=== PATIENT | male | born 1990 | race Two or more races ===

== ENCOUNTER 2019-11-07 08:07 | Outpatient (CLI) | payer BC, MEDICAID, OTHER ==
--- NOTE | 2019-11-07 20:32 | XRAY Report ---
Reason: LUMBAR RADICULOPATHY Procedure Date: 11/07/2019 Accession Number: [id number] / [id number] Procedure: WCP - Lumbar Spine 2 View CPT Code: Final Report FULL RESULT: EXAM: LUMBOSACRAL SPINE RADIOGRAPHY EXAM DATE: 11/07/2019 08:07 AM. CLINICAL HISTORY: LUMBAR RADICULOPATHY. COMPARISONS: None. TECHNIQUE: 3 views. FINDINGS: Alignment: Normal. No spondylolisthesis or scoliosis. Bones: Five [id number]-[id number] lumbar vertebral bodies are present. No fractures or bone lesions. Disks: Normal. Disk heights are maintained. Facets: Degenerative changes of bilateral facet joint at L5-S1 greater than L4-L5. Moderate neural foraminal and spinal canal stenosis at L5-S1. Sacroiliac Joints: Unremarkable. Soft Tissues: Normal. The visualized bowel gas pattern is normal. IMPRESSION: Degenerative changes of bilateral facet joint at L5-S1 greater than L4-L5. Moderate neural foraminal and spinal canal stenosis at L5-S1. No acute displaced fracture or malalignment. RADIA
== END 2019-11-07 08:08 | disposition home or self-care (01) ==
LOC: DI.WCP 08:07
PROVIDERS: ATTEND Family Medicine
DX: M47.816 Spondylosis without myelopathy or radiculopathy, lumbar region (principal); M47.817 Spondylosis without myelopathy or radiculopathy, lumbosacral region; M48.07 Spinal stenosis, lumbosacral region
CPT/HCPCS: 72100

== ENCOUNTER 2019-11-12 07:48 | Emergency (ER) | payer BC ==
--- NOTE | 2019-11-12 08:12 | ED Physician Documentation ---
PD HPI BACK PAIN - Stated complaint Stated Complaint: BILAT LEG PX - Chief complaint Chief Complaint: Back Pain - History obtained from History obtained from: Patient - History of Present Illness Timing - onset: How many days ago (several days ago, with worse since yesterday.) Timing - details: Abrupt onset (was just bending without contortion nor lifting and had a pop feeling in lower back with radiation to both backs of thighs. No weakness nor numbness. Has had episodes similarly in the past.), Still present Location: Lower Quality: Pain, Spasm Associated symptoms: No: Fever, Weakness, Numbness Improves with: Rest Worsened by: Movement Contributing factors: No: Twisting (but was bending over), Trauma Similar symptoms before: No diagnosis (has had episodes in the past. Current episode without particular trauma. Seen by PMD few days ago with lumbar xray done. No significant findings.) Review of Systems Constitutional: denies: Fever, Chills Nose: denies: Rhinorrhea / runny nose, Congestion Throat: denies: Sore throat Respiratory: denies: Cough : denies: Incontinent Skin: denies: Rash, Lesions PD PAST MEDICAL HISTORY - Past Medical History Cardiovascular: None Respiratory: None Endocrine/Autoimmune: None GI: None : None HEENT: None Psych: None Musculoskeletal: None Derm: None - Past Surgical History Past Surgical History: No - Present Medications Home Medications: Ambulatory Orders Medication Instructions Recorded Confirmed Cyclobenzaprine [Flexeril] 10 mg PO TID PRN 11/12/19 11/12/19 Hydrocodone/Acetaminophen [[place] 1 each PO Q6H PRN #15 tablet 11/12/19 5-325 Tablet] Naproxen 500 mg PO BID #20 tablet 11/12/19 dexAMETHasone [Decadron] 4 mg PO DAILY #5 tablet 11/12/19 methocarbamoL [Robaxin] 500 mg PO Q6H PRN #30 tablet 11/12/19 - Allergies Allergies/Adverse Reactions: Allergies Allergy/AdvReac Type Severity Reaction Status Date / Time No Known Drug Allergies Allergy Verified 11/12/19 08:03 - Social History Does the pt smoke?: No Smoking Status: Never smoker Does the pt drink ETOH?: Yes Does the pt have substance abuse?: No - Immunizations Immunizations are current?: Yes - POLST Patient has POLST: No PD ED PE NORMAL - Vitals Vital signs reviewed: Yes - General General: Alert and oriented X 3, Well developed/nourished, Other (seems uncomfortable with any ROM) - Abdomen Abdomen: Soft, Non tender - Back Back: No CVA TTP, No spinal TTP (but has some tenderness in bilateral lower back muscles near SI area. ) - Derm Derm: Normal color, Warm and dry - Extremities Extremities: Normal ROM s pain, No edema, No calf tenderness / cord - Neuro Neuro: Alert and oriented X 3, No motor deficit, No sensory deficit, Other (normal patellar reflexes) Results - Vitals Vitals: Vital Signs - 24 hr 11/12/19 11/12/19 07:54 09:49 Temperature 36.3 C L Heart Rate 70 71 Respiratory 18 16 Rate Blood Pressure 126/73 116/79 O2 Saturation 99 100 Oxygen O2 Source Room air - Rads (name of study) lumbar CT Radiology: Prelim report reviewed, See rad report PD MEDICAL DECISION MAKING - ED course Complexity details: reviewed results (given the abrupt worsening with radiation, I felt CT imaging appropriate.), considered differential, d/w patient Departure - Departure Disposition: 01 Home, Self Care Clinical Impression: Low back pain Qualifiers: Chronicity: acute Back pain laterality: bilateral Sciatica presence: with sciatica Sciatica laterality: bilateral sciatica Qualified Code(s): M54.42 - Lumbago with sciatica, left side Condition: Stable Record reviewed to determine appropriate education?: Yes Instructions: ED Low Back Pain Injury Follow-Up: Mikey Snyder DO [Primary Care Provider] - Prescriptions: dexAMETHasone [Decadron] 4 mg PO DAILY #5 tablet Hydrocodone/Acetaminophen [[place] 5-325 Tablet] 1 each PO Q6H PRN #15 tablet PRN Reason: Pain methocarbamoL [Robaxin] 500 mg PO Q6H PRN #30 tablet PRN Reason: Spasms Naproxen 500 mg PO BID #20 tablet Comments: Your CT scan looks pretty good with just minimal degenerative change of some of the discs. None appear significantly encroaching on the nerve roots or spinal cord. Presumably the pain and radiation to the backs of the legs can be coming from irritation of the nerve outside the spine so more likely the alignment and the muscles and inflammation. Treat this with anti-inflammatories of naproxen and steroidal anti-inflammatory Decadron as prescribed. To that add muscle relaxant (the one previously prescribed and I also wrote for another to continue after that if you run out). To that add Tylenol every 4-6 hours for additional pain or hydrocodone for worse pain. No heavy lifting or vigorous activity for several days but do gentle range of motion and stretching. Physical treatments such as massage and chiropractic are good for this as well and continue with those. Recheck if not improving well over the next several days to week. Forms: Activity restrictions Discharge Date/Time: 11/12/19 09:50
[2019-11-12] MEDS ORDERED: KETOROLAC 30 MG/ML VIAL IM STA (08:34)
[2019-11-12] MEDS ORDERED: HYDROcod/ACETAM 5/325 MG TABLET PO STA (08:34)
--- NOTE | 2019-11-12 09:28 | CT Report ---
Reason: abrupt worsening low back pain today Procedure Date: 11/12/2019 Accession Number: [id number] / [id number] Procedure: CT - LUMBAR SPINE WO CPT Code: Final Report FULL RESULT: EXAM: CT LUMBAR SPINE WITHOUT CONTRAST EXAM DATE: 11/12/2019 08:57 AM. CLINICAL HISTORY: Abrupt worsening low back pain today. Lower exam he pain and weakness. COMPARISONS: LUMBAR SPINE 2 VIEW 11/07/2019 7:36 AM ABDOMEN/PELVIS W/ 07/23/2014 12:37 PM. TECHNIQUE: Thin-section axial images were acquired of the lumbar spine from T12 to S1 without contrast. Post-processing: Coronal and sagittal reformats. Other: None. In accordance with CT protocol optimization, one or more of the following dose reduction techniques were utilized for this exam: automated exposure control, adjustment of mA and/or KV based on patient size, or use of iterative reconstructive technique. FINDINGS: Alignment: No scoliosis or spondylolisthesis. Bones: Five [id number] lumbar vertebral bodies are present. No fractures or bone lesions. Disk Levels/Facets: T12-L1: Unremarkable. L1-L2: Unremarkable. L2-L3: Unremarkable. L3-L4: Unremarkable. L4-L5: Minimal degenerative disk changes. L5-S1: Minimal degenerative disk changes and minimal bilateral degenerative facet changes. Musculature: Normal. No fatty atrophy. Other: The visualized retroperitoneum is unremarkable. IMPRESSION: Minimal degenerative changes at the L4-L5 and L5-S1 levels. No fracture or other acute osseous abnormality of the lumbar spine. RADIA
[2019-11-12 09:50] VITALS: BP 116/79
== END 2019-11-12 09:50 | disposition home or self-care (01) ==
LOC: ED 07:48
DX: M54.42 Lumbago with sciatica, left side (principal)
CPT/HCPCS: 72131; 96372; 99284

== ENCOUNTER 2021-10-05 12:34 | Outpatient (CLI) | payer MEDICAID ==
[2021-10-05 18:05] LABS: BASOPHILS % (AUTO) 0.4 %; EOSINOPHILS # (AUTO) 0.1 10^3/uL (0.0-0.7); EOSINOPHILS % (AUTO) 2.9 %; HCT - HEMATOCRIT 48.2 % (42.0-52.0); HGB - HEMOGLOBIN 16.1 g/dL (14.0-18.0); LYMPHOCYTES % (AUTO) 43.4 %; MEAN CORPUSCULAR HEMOGLOBIN 29.8 pg (27.0-31.0); MEAN CORPUSCULAR HGB CONC 33.4 g/dL (32.0-36.0); MEAN CORPUSCULAR VOLUME 89.3 fL (80.0-94.0); MEAN PLATELET VOLUME 11.2 fL (7.4-11.4); MONOCYTES # (AUTO) 0.4 10^3/uL (0.0-1.0); MONOCYTES % (AUTO) 7.7 %; NEUTROPHILS # (AUTO) 2.1 10^3/uL (1.5-6.6); NEUTROPHILS % (AUTO) 45.4 %; PLT - PLATELET COUNT 242 10^3/uL (130-450); RED CELL DISTRIBUTION WIDTH 12.8 % (12.0-15.0); WHITE BLOOD COUNT 4.6 x10^3/uL (4.8-10.8)
[2021-10-05 18:34] LABS: ALBUMIN 4.5 g/dL (3.2-5.5); ALBUMIN/GLOBULIN RATIO 1.2 (1.0-2.2); ALKALINE PHOSPHATASE 39 IU/L (42-121); ALT ALANINE AMINOTRANSFERASE 41 IU/L (10-60); AST ASPARTATE AMINOTRANSFERASE 26 IU/L (10-42); BILIRUBIN,TOTAL 0.7 mg/dL (0.2-1.0); BUN - BLOOD UREA NITROGEN 13 mg/dL (6-20); CALCIUM 9.6 mg/dL (8.5-10.3); CARBON DIOXIDE - CO2 30 mmol/L (21-32); CHLORIDE 101 mmol/L (101-111); CHOL/HDL RATIO 5.8 (<5.0); CHOLESTEROL 204 mg/dL; CREATININE 0.8 mg/dL (0.6-1.2); GFR - MDRD 111 (>89); GLUCOSE 92 mg/dL (70-100); HDL CHOLESTEROL 35 mg/dL; LDL CHOLESTEROL,CALCULATED 158 mg/dL; LDL/HDL RATIO 4.5 (<3.6); POTASSIUM 4.2 mmol/L (3.5-5.0); SODIUM 140 mmol/L (135-145); TOTAL PROTEIN 8.2 g/dL (6.7-8.2); TRIGLYCERIDES 56 mg/dL; VLDL CHOLESTEROL 11 mg/dL
[2021-10-05 18:36] LABS: THYROID STIMULATING HORMONE 1.75 uIU/mL (0.34-5.60)
[2021-10-05 20:20] LABS: ESTIMATED AVERAGE GLUCOSE 117 mg/dL (70-100); HEMOGLOBIN A1c% 5.7 % (4.27-6.07)
== END 2021-10-05 12:35 | disposition home or self-care (01) ==
LOC: LAB.N 12:34
PROVIDERS: ATTEND Nurse Practitioner Family
DX: Z00.01 Encounter for general adult medical examination with abnormal findings (principal); Z13.21 Encounter for screening for nutritional disorder; E66.9 Obesity, unspecified
CPT/HCPCS: 36415; 80053; 80061; 82306; 83036; 83721; 84443; 85025